=== PATIENT | female | born 1935 | race African-American/Black ===

== ENCOUNTER 2017-05-14 10:53 | Outpatient (CLI) | payer MEDICARE ==
--- NOTE | 2017-05-14 12:39 | Magnetic Resonance Report ---
MRI OF THE BRAIN WITHOUT CONTRAST: HISTORY: Memory loss PROCEDURE: Multiplanar, multisequence MR imaging of the brain without IV contrast was performed. FINDINGS: There are mild diffuse cortical volume loss and mild nonspecific chronic white matter changes. These findings appear appropriate for this persons age. Otherwise, the brain parenchyma signal intensity and its smith white interface are within normal limits on all sequences. No evidence for acute ischemia, hemorrhage or mass. No chronic infarct or extra-axial fluid collection. The midline structures are central. The basal cisterns are patent. Normal ventricular size. The orbital cavities and sella turcica demonstrate no abnormality. The visualized paranasal sinuses and mastoid air cells are well aerated. IMPRESSION: Age-appropriate volume loss and chronic white matter changes. No acute intracranial process is appreciated.
[2017-05-14 12:50] LABS: Hematocrit 37.3 % (30.3-42.9); Hemoglobin 12.6 gm/dl (10.1-14.3); Mean Corpuscular HGB Conc 34 % (30-34); Mean Corpuscular Hemoglobin 32 pg (28-32); Mean Corpuscular Volume 94 fl (79-97); Platelet Count 234 K/mm3 (140-440); Red Blood Count 3.98 M/mm3 (3.65-5.03); Red Cell Distribution Width 13.7 % (13.2-15.2); White Blood Count 5.7 K/mm3 (4.5-11.0)
[2017-05-14 12:55] LABS: Albumin 4.5 g/dL (3.9-5); Albumin/Globulin Ratio 1.6 %; BUN/Creatinine Ratio 21.81; Bilirubin,Total 0.4 mg/dL (0.1-1.2); Calcium 9.1 mg/dL (8.4-10.2); Chloride 102.9 mmol/L (98-107); Total Protein 7.4 g/dL (6.3-8.2)
== END 2017-05-14 10:54 | disposition home or self-care (01) ==
LOC: MRI 10:53
PROVIDERS: ATTEND Psychiatry & Neurology Neurology
DX: R90.82 White matter disease, unspecified (principal); R41.3 Other amnesia; I10 Essential (primary) hypertension; E78.00 Pure hypercholesterolemia, unspecified
CPT/HCPCS: 36415; 70551; 80053; 82607; 84439; 84443; 85027